=== PATIENT | female | born 1990 | race American Indian/Alaskan Native ===

== ENCOUNTER 2017-11-20 12:16 | Inpatient (IN) | payer BC, MEDICAID ==
[2017-11-20] MEDS ORDERED: XYLOCAINE 2% INFILTRATI ONE (13:46)
[2017-11-20] MEDS ORDERED: MINERAL OIL PO PRN (13:46)
[2017-11-20] MEDS ORDERED: ePHEDrine SULFATE IV PRN (13:46)
[2017-11-20] MEDS ORDERED: BRETHINE IVP PRN (13:46)
[2017-11-20] MEDS ORDERED: BRETHINE SUB-Q PRN (13:46)
[2017-11-20] MEDS ORDERED: PITOCin/NS 20 UNIT/1000ML DRIP 20 UNITS/1,000 ML BAG IV SCH (14:00)
[2017-11-20] MEDS ORDERED: PITOCin/NS 30 UNIT/500ML 30 UNITS/500 ML BAG IV SCH (14:00)
[2017-11-20 14:42] LABS: Hematocrit 33.8 % (30.3-42.9); Hemoglobin 11.1 gm/dl (10.1-14.3); Mean Corpuscular HGB Conc 33 % (30-34); Mean Corpuscular Volume 78 fl (79-97); Platelet Count 223 K/mm3 (140-440); Red Blood Count 4.33 M/mm3 (3.65-5.03); Red Cell Distribution Width 17.8 % (13.2-15.2)
[2017-11-20 14:43] LABS: Mean Corpuscular Hemoglobin 26 pg (28-32)
--- NOTE | 2017-11-20 16:14 | Ultrasound Report ---
FINAL REPORT EXAM: US OB LIMITED HISTORY: presentation/position TECHNIQUE: Directed sonography of the pelvis. PRIORS: None. FINDINGS: Limited examination performed to determine position only. Live intrauterine in cephalic presentation. heart motion detected and heart rate 143 beats per minute. IMPRESSION: 1. Please see above.
--- NOTE | 2017-11-20 16:47 | History and Physical Report ---
History of Present Illness Date of examination: 11/20/17 Date of admission: 11/20/17 12:16 Chief complaint: Sent from [facility] for IOL d/t low fluid History of present illness: 27 yo AA Fe TRA 11/28/2017 (LMP) 38weeks, 6 days presents per recommendation of [facility] for IOL d/t Oligohydramnios (CARLOS today 4.5). A positive, Rubella Immune, GBS Negative Pt [facility] At 12w6d. co- managed with [facility]: Class 3 Morbid Obesity (initial BMI 50). course complicated by exposure to trichomoniasis and Gonorrhea ( treated prophylactically, cultures negative), Borderline blood pressures(No meds. TSH, CMP, Hgb A1c WNL), Vitamin D deficiency (D3 supplementation), and Anemia (Ferrous sulfate BID). Past History Past Medical History: other (Morbid Obesity) Past Surgical History: no surgical history [employer] History: gonorrhea (exposure, treated 05/22/18, cultures negative), trichomonas (C&T 06/02, MCKENZIE negative 07/02). denies: abnormal PAP smear, chlamydia, hepatitis B, hepatitis C, herpes, HIV, syphilis Family/Genetic History: none Social history: no significant social history, single, lives with family, full code. denies: smoking, alcohol abuse, prescription drug abuse, IV drug use - Obstetrical History Expected Date of Delivery: 11/28/17 Actual Gestation: 38 Week(s) 6 Day(s) : 2 Para: 1 Hx # Term Pregnancies: 1 Number of Pregnancies: 0 Spontaneous Abortions: 0 Induced : 0 Number of Living Children: 1 #1 Infant Gender: Female year: 09 Birthweight: 2.438 kg Method of Delivery: Vaginal Gestational age at delivery: 40 Complications: none Medications and Allergies Allergies Allergy/AdvReac Type Severity Reaction Status Date / Time No Known Allergies Allergy Verified 03/06/15 03:00 Home Medications Medication Instructions Recorded Confirmed Last Taken Type Ibuprofen [Motrin] 600 mg PO Q8H PRN #20 tablet 12/10/15 Unknown Rx Metaxalone [Skelaxin] 800 mg PO TID #15 tablet 12/10/15 Unknown Rx Active Meds: Active Medications Ephedrine Sulfate (Ephedrine Sulfate) 10 mg IV Q2M PRN PRN Reason: Hypotension Lactated Ringer's (Lactated Ringers) 1,000 mls @ 125 mls/hr IV DIRECT SELINA Oxytocin/Sodium Chloride (Pitocin/Ns 20 Unit/1000ml Drip) 20 units in 1,000 mls @ 125 mls/hr IV DIRECT SELINA Oxytocin/Sodium Chloride (Pitocin/Ns 30 Unit/500ml) 30 units in 500 mls @ 1 mls /hr IV TITR SELINA; Protocol Mineral Oil (Mineral Oil) 30 ml PO QHS PRN PRN Reason: Constipation Terbutaline Sulfate (Brethine) 0.25 mg SUB-Q ONCE PRN PRN Reason: Hyperstimulation/Hypertonicity Terbutaline Sulfate (Brethine) 0.25 mg IVP ONCE PRN PRN Reason: Hyperstimulation/Hypertonicity Review of Systems Cardiovascular: no chest pain, no shortness of breath Respiratory: no shortness of breath Breasts: normal Gastrointestinal: no abdominal pain, no nausea, no vomiting, no diarrhea, no constipation Genitourinary: normal appearance, no vaginal bleeding, no vaginal discharge, no leakage of fluid, no pelvic pain, no genital sores, no contractions Integumentary: no rash, no sores, no lesions - Vital Signs Vital signs: Vital Signs Temp Pulse Resp BP 97.8 F 83 16 135/88 11/20/17 15:06 11/20/17 15:06 11/20/17 15:06 11/20/17 15:06 Temp Pulse Resp BP Pulse Ox 97.8 F 83 16 135/88 11/20/17 15:06 11/20/17 15:06 11/20/17 15:06 11/20/17 15:06 - Physical Exam Cardiovascular: Regular rate, Normal S1, Normal S2 Lungs: Positive: Clear to auscultation, Normal air movement Abdomen: Positive: normal appearance (Obese), soft, normal bowel sounds Genitourinary (Female): Positive: normal external genitalia, normal perenium Vulva: both: normal Vagina: Positive: normal moisture Uterus: Positive: enlarged (Gravid) Extremities: Positive: normal Deep Tendon Reflex Grade: Normal +2 - Obstetrical FHR: category 1 Uterine Contraction Monitor Mode: External Cervical Dilatation: 0 Cervical Effacement Percentage: 40 station: -3 Uterine Contraction Pattern: Absent Results Result Diagrams: 11/20/17 13:40 Abnormal lab results 04/27/18 Range/Units 13:40 MCV 78 L (79-97) fl MCH 26 L (28-32) pg RDW 17.8 H (13.2-15.2) % All other labs normal. Assessment and Plan A: ; TRA 11/28/17; 38w6d Morbid Obesity: BMI 58.7 Oligohydramnios: CARLOS 4.5cm Category 1 tracing GBS Negative P: Admit routine L&D orders OBUS:Confirm cephalic presentation Cervidil IOL
[2017-11-20] MEDS ORDERED: CERVIDIL VG ONE (16:55)
[2017-11-20] MEDS ORDERED: AMBIEN PO PRN (21:44)
[2017-11-21] MEDS ORDERED: SUBLIMAZE ONE (00:39)
[2017-11-21] MEDS: SUBLIMAZE IV PRN ×2 (00:45→03:30)
[2017-11-21] MEDS: LACTATED RINGERS 1,000 ML IV SCH ×2 (04:00→04:41)
[2017-11-21] MEDS ORDERED: ePHEDrine SULFATE IV PRN (04:53)
[2017-11-21] MEDS ORDERED: NARCAN 2 MG/2 ML IV PRN (04:53)
[2017-11-21] MEDS ORDERED: fentaNYL-BUPIV 2 MCG/ML-0.125% 200 MCG/100 ML BAG EPIDURAL SCH (05:00)
--- NOTE | 2017-11-21 07:22 | Progress Note ---
Assessment and Plan A: 27 y/o at 39 weeks in labour -Cat 2 tracing (minimal variability w/ no decels or accels) -fully dilated at +2 station P: -Oxygen, fluids and position changes started -Reduce epidural density -Will start active pushing once pelvic sensation apparent - Patient Problems (1) 39 weeks gestation of Current Visit: Yes Status: Acute Subjective - Subjective Date of service: 11/21/17 Interval history: Patient now 10 and -2 station. Epidurall is dense Patient reports: contractions, no vaginal bleeding Objective - Vital Signs Vital Signs: Vital Signs - 12hr 11/20/17 11/21/17 23:30 03:56 Temperature 99.4 F 97.8 F Pulse Rate 90 91 H Respiratory 18 18 Rate Blood Pressure 144/90 139/84 [Left] - Exam FHR: category 2 (minimal variability with no decels) Cervical Dilatation: 10 station: -2 - Labs Labs: Abnormal Labs 11/20/17 13:40 MCV 78 L MCH 26 L RDW 17.8 H Laboratory Results - last 24 hr 11/20/17 11/20/17 13:40 13:40 WBC 10.4 RBC 4.33 Hgb 11.1 Hct 33.8 MCV 78 L MCH 26 L MCHC 33 RDW 17.8 H Plt Count 223 Blood Type A POSITIVE Antibody Screen Negative
[2017-11-21] MEDS ORDERED: XYLOCAINE 2% INFILTRATI ONE (09:50)
[2017-11-21] MEDS ORDERED: METHERGINE IM ONE (09:50)
--- NOTE | 2017-11-21 10:06 | Procedure Note ---
OB Delivery Note - Delivery Date of Delivery: 11/21/17 Surgeon: SUE ADRIAN Estimated blood loss: 100cc - Vaginal Delivery presentation: vertex Delivery position: OA Delivery induction: cervidil Delivery augmentation: pitocin Delivery monitor: external FHT, external uterine Route of delivery: Delivery placenta: spontaneous Delivery cord: 3 umbilical vessels Episiotomy: none Delivery laceration: 2nd degree Delivery repair: vicryl Anesthesia: epidural - A at 1 minute: 8 at 5 minutes: 9 Infant Gender: Male (Time of delivery is 9:45 AM, weight is 7 lbs. 10 oz. or 3451 g)
[2017-11-21] MEDS ORDERED: ANUCORT-HC PR PRN (10:07)
[2017-11-21] MEDS ORDERED: TYLENOL PO PRN (10:07)
[2017-11-21] MEDS ORDERED: TUCKS PAD TP PRN (10:07)
[2017-11-21] MEDS ORDERED: ZOFRAN IV PRN (10:07)
[2017-11-21] MEDS ORDERED: DULCOLAX PR PRN (10:07)
[2017-11-21] MEDS ORDERED: PHENERGAN PR PRN (10:07)
[2017-11-21] MEDS ORDERED: LANSINOH TP PRN (10:07)
[2017-11-21] MEDS ORDERED: METHERGINE IM PRN (10:07)
[2017-11-21] MEDS ORDERED: NORCO 5/325 PO PRN (10:07)
[2017-11-21] MEDS ORDERED: MILK OF MAGNESIA PO PRN (10:07)
[2017-11-21] MEDS ORDERED: BENADRYL PO PRN (10:07)
[2017-11-21] MEDS ORDERED: PHENERGAN PO PRN (10:07)
[2017-11-21] MEDS ORDERED: SODIUM CHLORIDE FLUSH SYRINGE 10 ML IV NR (11:00)
[2017-11-21] MEDS ORDERED: PITOCin/NS 20 UNIT/1000ML DRIP 20 UNITS/1,000 ML BAG IV SCH (11:00)
[2017-11-21] MEDS: MOTRIN PO SCH ×2 (18:04→23:35)
[2017-11-21] MEDS: COLACE PO SCH (22:50)
[2017-11-21] MEDS: FEOSOL PO SCH (22:55)
[2017-11-21 22:59] LABS: Hematocrit 32.2 % (30.3-42.9)
[2017-11-21] MEDS: SENOKOT S PO SCH (23:42)
[2017-11-22] MEDS: MOTRIN PO SCH ×4 (06:00→23:27)
[2017-11-22] MEDS: FEOSOL PO SCH ×2 (12:25→21:25)
[2017-11-22] MEDS: COLACE PO SCH ×2 (12:25→21:25)
[2017-11-22] MEDS: PRENATAL VITAMIN PO SCH (12:25)
--- NOTE | 2017-11-22 12:54 | Progress Note ---
Assessment and Plan A: PP Day #1 Stable P: Follow Routine Orders D/C home today Plans OCPs for contraception RTO in 6 weeks for Exam RTO in one week for male circumcision Subjective - Subjective Date of service: 11/22/17 Patient reports: appetite normal, voiding normally, pain well controlled, flatus , ambulating normally : doing well, bottle feeding (and ) Objective - Vital Signs Latest vital signs: Vital Signs Temp Pulse Resp BP BP Pulse Ox 11/22/17 08:00 98.5 F 83 20 119/72 11/22/17 06:00 18 11/22/17 01:00 98.5 F 88 20 130/78 11/22/17 00:35 18 11/21/17 23:35 18 11/21/17 21:01 98.3 F 18 126/73 11/21/17 21:00 96 H 96 11/21/17 16:39 98.8 F 97 H 18 112/58 11/21/17 13:15 97.9 F 105 H 18 140/76 98 Intake and Output 11/21/17 11/22/17 11/22/17 22:59 06:59 14:59 Intake Total 360 480 320 Balance 360 480 320 Intake: Oral 360 320 Intake, Free Water 480 Other: Total, Intake Amount 360 320 # Voids Void 3 1 - Exam Breasts: Present: normal Cardiovascular: Present: Regular rate Lungs: Present: Clear to auscultation, Normal air movement Abdomen: Present: normal appearance, soft, normal bowel sounds Uterus: Present: normal, firm, fundal height below umbilicus Extremities: Present: normal - Labs Labs: Abnormal lab results 11/21/17 Range/Units 22:31 Hgb 10.0 L (10.1-14.3) gm/dl
--- NOTE | 2017-11-22 12:55 | Discharge Summary ---
Providers - Providers Date of Admission: 11/20/17 12:16 Date of discharge: 11/22/17 Attending physician: JESUS HYLTON MD Primary care physician: JESUS HYLTON MD Hospitalization Reason for admission: induction of labor Delivery: Episiotomy: none Laceration: 2nd degree Other procedures: none complications: none Discharge diagnosis: IUP at term delivered [place] baby: male Condition at discharge: Good Disposition: DC-01 TO HOME OR SELFCARE Plan - Discharge Medications Prescriptions: HYDROcodone/ACETAMINOPHEN [[place] 5-325 Tablet] 1 each PO Q6HR #10 tablet Ibuprofen [Motrin 600 MG tab] 600 mg PO Q8H PRN #30 tablet PRN Reason: Pain Multivitamin with Iron [Multivitamins with Iron] 1 each PO DAILY #30 tablet - Provider Discharge Summary Activity: routine, no sex for 6 weeks, no heavy lifting 4 weeks, no strenuous exercise Diet: routine Instructions: routine Additional instructions: [] Smoking cessation referral if applicable(refer to patient education folder for contact #) [] Refer to [facility] Booklet Call your doctor immediately for: * Fever > 100.5 * Heavy vaginal bleeding ( >1 pad per hour) * Severe persistent headache * Shortness of breath * Reddened, hot, painful area to leg or breast * Drainage or odor from incision. * Keep incision clean and dry at all times and follow doctor's instructions regarding bathing/showering - Follow up plan Follow up: JESUS HYLTON MD [Primary Care Provider] - 6 Weeks
[2017-11-22] MEDS ORDERED: MYLICON ONE (17:45)
[2017-11-22] MEDS: SENOKOT S PO SCH (23:28)
[2017-11-23] MEDS: MOTRIN PO SCH ×2 (05:30→11:25)
[2017-11-23] MEDS: PRENATAL VITAMIN PO SCH (11:26)
[2017-11-23] MEDS: FEOSOL PO SCH (11:26)
[2017-11-23] MEDS: COLACE PO SCH (11:26)
[2017-11-23 16:43] VITALS: BP 136/78
== END 2017-11-23 12:00 | disposition home or self-care (01) | DRG 775 ==
LOC: LD 12:16 → OB 11-21 12:33
PROVIDERS: ADMIT Obstetrics & Gynecology; ATTEND Obstetrics & Gynecology
PROC: 10E0XZZ Delivery of Products of Conception, External Approach (ICD-10-PCS; principal; 2017-11-21)
PROC: 0KQM0ZZ Repair Perineum Muscle, Open Approach (ICD-10-PCS; 2017-11-21)
PROC: 3E0P7VZ Introduction of Hormone into Female Reproductive, Via Natural or Artificial Opening (ICD-10-PCS; 2017-11-21)
PROC: 3E0R3BZ Introduction of Anesthetic Agent into Spinal Canal, Percutaneous Approach (ICD-10-PCS; 2017-11-21)
PROC: 00HU33Z Insertion of Infusion Device into Spinal Canal, Percutaneous Approach (ICD-10-PCS; 2017-11-21)
DX: O41.03X0 Oligohydramnios, third trimester, not applicable or unspecified (principal); Z68.43 Body mass index [BMI] 50.0-59.9, adult; O99.214 Obesity complicating childbirth; E66.01 Morbid (severe) obesity due to excess calories; O70.1 Second degree perineal laceration during delivery; Z3A.38 38 weeks gestation of pregnancy; Z37.0 Single live birth
CPT/HCPCS: 36415; 76815; 85014; 85018; 85027; 86592; 86850; 86900; 86901; 99211; G0463; J2210; J2590; J3010; J7120